=== PATIENT | female | born 1985 | race Caucasian/White ===

== ENCOUNTER 2019-08-26 14:18 | Emergency (ER) | payer SELFPAY ==
[~2019-08-26] VITALS: Ht 154.9 cm; Wt 65.0 kg
[2019-08-26 16:28] LABS: BASOPHILS % 0.7 % (0.0-2.0); EOSINOPHILS % 1.8 % (0.0-5.0); HEMATOCRIT. 37.3 % (36.0-48.0); HEMOGLOBIN. 12.5 g/dL (12.0-16.0); LYMPHOCYTES % 22.9 % (20.0-50.0); MEAN CORPUSCULAR VOLUME 86.3 fL (81.0-99.0); MEAN PLATELET VOLUME 9.6 fl (7.4-10.4); MONOCYTES % 8.9 % (2.0-8.0); NEUTROPHILS % 65.7 % (40.0-76.0); PLATELET 192 x1000/uL (130-400); RED BLOOD CELL COUNT 4.32 mill/uL (4.2-5.4); RED CELL DISTRIBUTION WIDTH 13.8 % (11.6-14.6)
[2019-08-26] MEDS ORDERED: SODIUM CHLORIDE 0.9% 500 ML IV ONE (16:30)
[2019-08-26 16:32] LABS: CHLORIDE 105 mEq/L (98-107)
[2019-08-26 16:41] LABS: CLARITY URINE TURBID (CLEAR); COLOR URINE YELLOW (YELLOW); KETONES URINE NEGATIVE (NEGATIVE); LEUKOCYTE ESTERASE URINE 2+ (NEGATIVE); NITRITE URINE NEGATIVE (NEGATIVE); OCCULT BLOOD URINE 2+ (NEGATIVE); PROTEIN URINE NEGATIVE (NEGATIVE); SPECIFIC GRAVITY URINE 1.015 (1.005-1.030)
[2019-08-26 16:57] LABS: B-HCG QUANTITATIVE 36644 mIU/mL (<3)
[2019-08-26 18:35] VITALS: BP 110/51
== END 2019-08-26 19:00 | disposition home or self-care (01) ==
LOC: ER 14:18
DX: O23.41 Unspecified infection of urinary tract in pregnancy, first trimester (principal); O20.0 Threatened abortion; Z3A.10 10 weeks gestation of pregnancy
CPT/HCPCS: 36415; 76801; 76817; 80053; 81003; 84702; 85025; 86850; 86900; 86901; 99284; J7040; Z7610

== ENCOUNTER 2020-05-23 22:31 | Inpatient (IN) | payer BC, MEDICAID ==
[~2020-05-23] VITALS: Ht 154.9 cm; Wt 68.0 kg
[2020-05-23] MEDS ORDERED: ONDANSETRON HCL 4MG/2ML INJ IV STA (22:51)
[2020-05-23] MEDS ORDERED: MAGNESIUM/ALUMINUM HYDROXIDE/SIMETHICONE 30ML UDC PO STA (22:51)
[2020-05-23] MEDS ORDERED: ACETAMINOPHEN 325MG TABLET PO STA (22:51)
[2020-05-23] MEDS ORDERED: SODIUM CHLORIDE 0.9% 1,000 ML IV ONE (22:51)
[2020-05-23 23:40] LABS: HEMATOCRIT. 37.2 % (36.0-48.0); HEMOGLOBIN. 12.5 g/dL (12.0-16.0); MEAN CORPUSCULAR HEMOGLOBIN 28.6 pg (28.0-32.0); MEAN CORPUSCULAR VOLUME 85.5 fL (81.0-99.0); MEAN PLATELET VOLUME 9.2 fl (7.4-10.4); PLATELET 241 x1000/uL (130-400); RED BLOOD CELL COUNT 4.35 mill/uL (4.2-5.4); RED CELL DISTRIBUTION WIDTH 13.2 % (11.6-14.6)
[2020-05-23 23:46] LABS: CHLORIDE 102 mEq/L (98-107)
[2020-05-23 23:54] LABS: HCG SCREEN NEGATIVE
[2020-05-24 00:06] LABS: PLATELET ESTIMATE NORMAL
[2020-05-24] MEDS ORDERED: KETOROLAC 15MG/ML VIAL IV ONE (01:30)
[2020-05-24] MEDS ORDERED: PIPERACILLIN/TAZ 3.375G PREMIX 50 ML IV ONE (01:30)
[2020-05-24 01:33] LABS: COLOR URINE YELLOW (YELLOW); KETONES URINE NEGATIVE (NEGATIVE); LEUKOCYTE ESTERASE URINE 1+ (NEGATIVE); NITRITE URINE NEGATIVE (NEGATIVE); OCCULT BLOOD URINE NEGATIVE (NEGATIVE); PROTEIN URINE NEGATIVE (NEGATIVE); SPECIFIC GRAVITY URINE 1.011 (1.005-1.030); UROBILINOGEN URINE 0.2 E.U./dL (0.2-1.0)
[2020-05-24 01:35] LABS: CLARITY URINE HAZY (CLEAR)
[2020-05-24] MEDS: MORPHINE SULFATE 2 MG/ML CPJ (NOT FOR IM USE) IV PRN ×3 (06:51→21:07)
[2020-05-24] MEDS: ONDANSETRON HCL 4MG/2ML INJ IV PRN ×2 (06:51→11:13)
[2020-05-24 08:30] VITALS: BP 96/46
[2020-05-24] MEDS: DEXT 5%/0.45% NACL 1000ML 1,000 ML IV SCH (09:45)
[2020-05-24 12:00] VITALS: BP 106/69
[2020-05-24] MEDS: PIPERACILLIN/TAZOBACTAM 3.375 G in DEXT 5% WATER 100 ML IV SCH ×2 (15:48→21:07)
[2020-05-24 16:00] VITALS: BP 109/69
[2020-05-24 20:00] VITALS: BP 105/69
[2020-05-25] MEDS: PIPERACILLIN/TAZOBACTAM 3.375 G in DEXT 5% WATER 100 ML IV SCH ×4 (00:05→18:02)
[2020-05-25 04:00] VITALS: BP 100/64
[2020-05-25] MEDS: DEXT 5%/0.45% NACL 1000ML 1,000 ML IV SCH (05:27)
[2020-05-25] MEDS: MORPHINE SULFATE 2 MG/ML CPJ (NOT FOR IM USE) IV PRN ×3 (05:43→21:19)
[2020-05-25 06:36] LABS: BASOPHILS % 0.3 % (0.0-2.0); EOSINOPHILS % 0.4 % (0.0-5.0); HEMOGLOBIN. 11.6 g/dL (12.0-16.0); LYMPHOCYTES % 10.1 % (20.0-50.0); MEAN CORPUSCULAR HEMOGLOBIN 28.6 pg (28.0-32.0); MEAN CORPUSCULAR VOLUME 86.5 fL (81.0-99.0); MEAN PLATELET VOLUME 9.5 fl (7.4-10.4); MONOCYTES % 10.9 % (2.0-8.0); NEUTROPHILS % 78.3 % (40.0-76.0); PLATELET 207 x1000/uL (130-400); RED BLOOD CELL COUNT 4.05 mill/uL (4.2-5.4); RED CELL DISTRIBUTION WIDTH 13.5 % (11.6-14.6)
[2020-05-25 06:48] LABS: CHLORIDE 104 mEq/L (98-107)
[2020-05-25 08:00] VITALS: BP 98/56
[2020-05-25] MEDS ORDERED: SKIN ADHESIVE 0.7 GM EA TOP ONE (09:45)
[2020-05-25] MEDS ORDERED: BUPIVACAINE HCL 0.5% (5MG/ML) 50ML ONE (09:46)
[2020-05-25] MEDS ORDERED: MORPHINE SULFATE 4 MG/ML CPJ (NOT FOR IM USE) IV PRN (11:45)
[2020-05-25] MEDS ORDERED: HYDROCODONE/ACETAMINOPHEN 5/325MG TABLET PO PRN ×2 (11:45)
[2020-05-25] MEDS ORDERED: ONDANSETRON HCL 4MG/2ML INJ IV PRN ×2 (11:45→13:15)
[2020-05-25] MEDS ORDERED: SODIUM CHLORIDE 0.9% 10ML VIAL ONE (11:58)
[2020-05-25] MEDS ORDERED: EPHEDRINE SULFATE 50MG/ML VIAL ONE (11:58)
[2020-05-25] MEDS ORDERED: METOCLOPRAMIDE HCL 10MG/2ML VIAL ONE (11:58)
[2020-05-25] MEDS ORDERED: SUCCINYLCHOLINE CHLORIDE 200MG/10ML IV ONE (11:58)
[2020-05-25] MEDS ORDERED: MIDAZOLAM HCL 2 MG/2 ML VIAL ONE (11:58)
[2020-05-25] MEDS ORDERED: PROPOFOL 200MG/20ML VIAL IV ONE (11:58)
[2020-05-25] MEDS ORDERED: CEFAZOLIN SODIUM 1000MG/VIAL ONE (11:58)
[2020-05-25] MEDS ORDERED: GLYCOPYRROLATE 0.2 MG/ML 2ML VIAL ONE (11:58)
[2020-05-25] MEDS ORDERED: ONDANSETRON HCL 4MG/2ML INJ ONE (11:58)
[2020-05-25] MEDS ORDERED: NEOSTIGMINE METHYLSULFATE 1MG/ML 10 ML VIAL ONE (11:58)
[2020-05-25] MEDS ORDERED: FENTANYL CITRATE/PF 50MCG/ML 2ML VIAL ONE ×3 (11:58→12:21)
[2020-05-25] MEDS ORDERED: ROCURONIUM BROMIDE 10MG/ML VIAL 5ML IV ONE (12:05)
[2020-05-25] MEDS ORDERED: SODIUM CHLORIDE 0.9% 1,000 ML IV ONE (13:10)
[2020-05-25] MEDS ORDERED: HYDROMORPHONE HCL/PF 2MG/ML CPJ IV PRN (13:15)
[2020-05-25] MEDS ORDERED: MORPHINE SULFATE 2 MG/ML CPJ (NOT FOR IM USE) IV PRN (13:15)
[2020-05-25] MEDS ORDERED: MEPERIDINE HCL/PF 25MG/ML CPJ IV PRN ×2 (13:15)
[2020-05-25] MEDS: SODIUM CHLORIDE 0.9% INJ 3ML FLUSH IVF SCH ×2 (14:00→21:18)
[2020-05-25 16:00] VITALS: BP 107/76
[2020-05-25] MEDS: ONDANSETRON HCL 4MG/2ML INJ IV PRN (16:04)
[2020-05-25] MEDS: DEXT 5%/0.45% NACL KCL 20MEQ/L 1,000 ML IV SCH ×2 (16:08→22:36)
[2020-05-25 20:00] VITALS: BP 112/63
[2020-05-25] MEDS ORDERED: ACETAMINOPHEN 325MG TABLET PO PRN (21:45)
[2020-05-26] VITALS: BP 92/43
[2020-05-26] MEDS: PIPERACILLIN/TAZOBACTAM 3.375 G in DEXT 5% WATER 100 ML IV SCH ×3 (00:20→12:30)
[2020-05-26] MEDS: MORPHINE SULFATE 2 MG/ML CPJ (NOT FOR IM USE) IV PRN ×2 (02:23→08:34)
[2020-05-26 04:00] VITALS: BP 88/52
[2020-05-26] MEDS: SODIUM CHLORIDE 0.9% INJ 3ML FLUSH IVF SCH (06:09)
[2020-05-26 08:00] VITALS: BP 101/67
[2020-05-26] MEDS: DEXT 5%/0.45% NACL KCL 20MEQ/L 1,000 ML IV SCH (10:17)
[2020-05-26] MEDS ORDERED: LEVO500T2 MT (11:01)
[2020-05-26 12:00] VITALS: BP 98/54
[2020-05-26 14:02] VITALS: BP 98/54
== END 2020-05-26 14:48 | disposition home or self-care (01) | DRG 263 ==
LOC: ER 22:31 → 6EST 05-24 01:29 → EDBEDREQ 05-24 01:30 → EDBEDREQTM 05-24 01:30 → ENRESERV 05-24 07:32 → 6EST 05-24 09:31
PROVIDERS: ADMIT Internal Medicine; ATTEND Internal Medicine
PROC: 0FT44ZZ Resection of Gallbladder, Percutaneous Endoscopic Approach (ICD-10-PCS; principal; 2020-05-25)
DX: K80.00 Calculus of gallbladder with acute cholecystitis without obstruction (principal); K82.8 Other specified diseases of gallbladder
CPT/HCPCS: 36415; 71045; 73706; 76705; 80048; 80053; 81003; 84703; 85025; 88304; 99285; J0330; J0690; J1885; J2250; J2270; J2405; J2543; J2704; J2710; J2765; J3010; J3490; J7030; J7060